=== PATIENT | male | born 1950 | race Caucasian/White ===

== ENCOUNTER 2020-03-04 08:38 | Outpatient (CLI) | payer MEDICARE, SELFPAY ==
--- NOTE | 2020-03-04 | ECG_ITS ---
Measurements Intervals [place] Rate: 39 P: RI: 0 QRS: -61 QRSD: 170 T: 36 QT: 521 QTc: 420 Interpretive Statements SINUS RHYTHM WITH COMPLETE HEART BLOCK SLOW JUCTIONAL ESCAPE RHYTHM VENTRICULAR PREMATURE COMPLEXES RIGHT BUNDLE BRANCH BLOCK LEFT ANTERIOR FASCICULAR BLOCK BASELINE ARTIFACT- AVR, AVL, AVF, V1-V3 ABNORMAL ECG Electronically Signed On 03-04-2020 9:38:49 CDT by Osman Vidal D.O.
== END 2020-03-04 08:39 | disposition home or self-care (01) ==
PROVIDERS: PCP Internal Medicine Infectious Disease; Visit Provider Internal Medicine Infectious Disease
DX: R00.1 Bradycardia, unspecified (principal); R94.31 Abnormal electrocardiogram [ECG] [EKG]
CPT/HCPCS: 93005